=== PATIENT | male | born 1995 | race African-American/Black ===

== ENCOUNTER 2020-09-26 16:08 | Emergency (ER) | payer OTHER ==
[~2020-09-26] VITALS: Ht 195.6 cm; Wt 114.5 kg
[2020-09-26 16:10] VITALS: BP 126/75
--- NOTE | 2020-09-26 18:39 | RAD ---
Chest radiograph 09/26/2020 5:39 PM INDICATION: Rib pain COMPARISON: None available TECHNIQUE: Frontal and lateral views of the chest are provided. FINDINGS: The cardiomediastinal silhouette is within normal limits. There are no pleural effusions. There is no pulmonary vascular congestion. There is no pneumothorax. The lungs are clear. No significant osseous abnormality is identified. IMPRESSION: No acute cardiopulmonary process. Electronically signed by: Sheyla Duff MD (09/26/2020 6:37 PM) [facility]
--- NOTE | 2020-09-26 19:35 | PHYS DOC ---
Past Medical History Past Medical History: Asthma, Bipolar, Diabetes-Type II Past Surgical History: Other Additional Past Surgical Histo: RIGHT KNEE, RIGHT FOOT, RIGHT TESTICLE Smoking Status: Never Smoker Alcohol Use: Rarely General Adult EDM: Chief Complaint: CHEST WALL PAIN HPI: HPI: Patient is a 25 year old male with history of asthma, bipolar, diabetes type 2, who presents to the ED today complaining of 10 out of 10 sharp intermittent left sided rib pain, symptoms began after injury at work. Patient states he was walking at work at [employer], he states he stepped on a wet floor, he slipped and caught himself landing on a counter at work. Patient denies hitting his head. Denies any loss of consciousness. Says the pain is worse on deep breaths. Review of Systems: Review of Systems: Constitutional: Denies fever or chills. [] Eyes: Denies change in visual acuity. [] HENT: Denies nasal congestion or sore throat. [] Respiratory: Denies cough or shortness of breath. [] Cardiovascular: Reports left-sided chest pain GI: Denies abdominal pain, nausea, vomiting, bloody stools or diarrhea. [] : Denies dysuria. [] Musculoskeletal: Denies back pain or joint pain. [] Integument: Denies rash. [] Neurologic: Denies headache, focal weakness or sensory changes. [] Endocrine: Denies polyuria or polydipsia. [] Lymphatic: Denies swollen glands. [] Psychiatric: Denies depression or anxiety. [] Heart Score: C/O Chest Pain: N/A Risk Factors: Risk Factors: DM, Current or recent (<one month) smoker, HTN, HLP, family history of CAD, obesity. Risk Scores: Score 0 - 3: 2.5% MACE over next 6 weeks - Discharge Home Score 4 - 6: 20.3% MACE over next 6 weeks - Admit for Clinical Observation Score 7 - 10: 72.7% MACE over next 6 weeks - Early Invasive Strategies Allergies: Allergies: Allergies Coded Allergies Type Severity Reaction Last Updated Verified No Known Drug Allergies 09/26/20 No Physical Exam: PE: Constitutional: Well developed, well nourished, no acute distress, non-toxic appearance. [] HENT: Normocephalic, atraumatic, bilateral external ears normal, oropharynx moist, no oral exudates, nose normal. [] Eyes: PERRLA, EOMI, conjunctiva normal, no discharge. [] Neck: Normal range of motion, no tenderness, supple, no stridor. [] Cardiovascular:Heart rate regular rhythm, no murmur [] Lungs & Thorax: Tenderness on palpation of the left ribs mid clavicular line approximately ribs 8 through 10, bilateral breath sounds clear to auscultation [] Abdomen: Bowel sounds normal, soft, no tenderness, no masses, no pulsatile masses. [] Skin: Warm, dry, no erythema, no rash. [] Back: No tenderness, no CVA tenderness. [] Extremities: No tenderness, no cyanosis, no clubbing, ROM intact, no edema. [] Neurologic: Alert and oriented X 3, normal motor function, normal sensory function, no focal deficits noted. [] Psychologic: Affect normal, judgement normal, mood normal. [] Current Patient Data: Vital Signs: Vital Signs Date Time Temp Pulse Resp B/P (MAP) Pulse Ox O2 Delivery O2 Flow Rate FiO2 09/26/20 16:10 98.3 94 16 126/75 (92) 99 Room Air 98.3 EKG: EKG: [] Radiology/Procedures: Radiology/Procedures: []PROCEDURE: CHEST PA & LATERAL Chest radiograph 09/26/2020 5:39 PM INDICATION: Rib pain COMPARISON: None available TECHNIQUE: Frontal and lateral views of the chest are provided. FINDINGS: The cardiomediastinal silhouette is within normal limits. There are no pleural effusions. There is no pulmonary vascular congestion. There is no pneumothorax. The lungs are clear. No significant osseous abnormality is identified. IMPRESSION: No acute cardiopulmonary process. Electronically signed by: Morenita Duff MD (09/26/2020 6:37 PM) [facility] DICTATED and SIGNED BY: MORENITA DUFF MD DATE: 09/26/20 [id number] 0 Course & Med Decision Making: Course & Med Decision Making Pertinent Labs and Imaging studies reviewed. (See chart for details) This 35-year-old male patient presenting to the ED today with left-sided rib pain after slipping and catching himself, he landed on a counter at work. Chest x-ray interpreted by radiologist as negative for any acute findings. Discharge to home. Deep breaths recommended. Ice elevation of the affected area recommended. OTC pain relievers. Follow-up with primary care doctor George Disclaimer: George Disclaimer: This electronic medical record was generated, in whole or in part, using a voice recognition dictation system. Departure Departure Impression: Primary Impression: Muscle strain of anterior chest wall Disposition: HOME / SELF CARE / HOMELESS Condition: STABLE Referrals: UNKNOWN PCP NAME (PCP) follow up in one week with your dotor next week Patient Instructions: Muscle Strain Additional Instructions: You were evaluated in the emergency room for muscle strain of your chest. Your chest x-ray is negative for any acute findings. Try to ice and elevate the affected area. Take [id number] pain relievers especially anti- inflammatories like ibuprofen as needed. Follow-up with your doctor in 1 week BRANDEN ISAAC APRN Sep 26, 2020 19:35
== END 2020-09-26 19:45 | disposition home or self-care (01) ==
LOC: ER 16:08
DX: S29.011A Strain of muscle and tendon of front wall of thorax, initial encounter (principal); J45.909 Unspecified asthma, uncomplicated; F31.9 Bipolar disorder, unspecified; E11.9 Type 2 diabetes mellitus without complications; W18.31XA Fall on same level due to stepping on an object, initial encounter; Y93.01 Activity, walking, marching and hiking; Y92.69 Other specified industrial and construction area as the place of occurrence of the external cause; Y99.0 Civilian activity done for income or pay
CPT/HCPCS: 71046; 99283